=== PATIENT | female | born 1980 | race African-American/Black ===

== ENCOUNTER 2019-09-17 06:03 | Day surgery (SDC) | payer OTHER, SELFPAY ==
--- NOTE | 2019-09-15 08:40 | NUR ---
LAB RESULT COPIES WERE FAXED TO DR. BYRD'S OFFICE AND SENT TO ANESTHESIOLOGIST FOR REVIEW. DR. HERNANDEZ, ANESTHESIOLOGIST HAS NO ADDITIONAL ORDER AT THIS TIME.
[~2019-09-17] VITALS: Ht 170.2 cm; Wt 77.1 kg
[2019-09-17 06:25] VITALS: BP 135/72
[2019-09-17 11:33] VITALS: BP 128/85
== END 2019-09-17 11:15 | disposition home or self-care (01) ==
LOC: DS 06:03 → OR 07:30 → DS 07:30
PROVIDERS: ATTEND Obstetrics & Gynecology
DX: N92.1 Excessive and frequent menstruation with irregular cycle (principal); D25.0 Submucous leiomyoma of uterus; Z88.8 Allergy status to other drugs, medicaments and biological substances; Z11.59 Encounter for screening for other viral diseases
CPT/HCPCS: J0690; J2175; J2250; J3010; U0003-CS